=== PATIENT | male | born 1955 | race Caucasian/White ===

== ENCOUNTER 2018-04-16 19:51 | Emergency (ER) | payer OTHER, SELFPAY ==
[2018-04-16 19:52] VITALS: BP 129/65; PULSE 87; RESP 18; TEMP 38.9; O2SAT 99; BMI 24.7
[2018-04-16] MEDS: Acetaminophen 325 MG Tablet 650 MG PO (20:42)
--- NOTE | 2018-04-16 21:16 | ED.RN ---
INITIAL BLOOD CULTURE DRAWN WITH IV START.
[2018-04-16 21:54] LABS: Anion Gap 10 (5-15); BUN 16 mg/dL (7-18); BUN/Creat Ratio 12.8 RATIO (10-20); Calcium,Total 8.4 mg/dL (8.5-10.1); Chloride 98 mmol/L (98-107); Creatinine, Serum 1.25 mg/dL (0.70-1.30); EST Glomerular Filtration Rate 62 mL/min (>60); Est Glom Filt Rate - Afr Amer 75 mL/min (>60); Estimated Creatinine Clearance 61.27 ml/min; Glucose 115 mg/dL (74-106); Potassium 3.7 mmol/L (3.5-5.1); Sodium Level 133 mmol/L (136-145)
[2018-04-16] MEDS: 0.9% Normal Saline 1,000 ML 1000 ML IV (22:00)
[2018-04-16] MEDS: Ketorolac 30 MG/ML Syringe IV (22:00)
[2018-04-16 22:01] LABS: Absolute Lymphocyte Count 0.41 X10^3/ul (0.83-4.51); Hematocrit 44.3 % (40-54); Hemoglobin 15.3 g/dl (13.0-16.5); Lymphocyte # 0.41 X10^3/ul (4.0); Lymphocyte % 15.5 % (19-41); Mean Corp Hgb Conc 34.5 g/gl (32-36); Mean Corpuscular Hgb 29.5 pg (27.0-32.0); Mean Corpuscular Volume 85.4 fL (80-94); Mean Platelet Vol. 10.3 fl (6.2-12.0); Monocyte# 0.28 X10^3/uL; Monocyte% 10.6 % (0-10); Neutrophil # 1.96 X10^3/uL (2.7-7.7); Neutrophil % 73.9 % (47-70); Platelet Count 129 K/mm3 (150-450); RBC Distribution Width CV 12.6 % (11.6-14.6); RBC Distribution Width SD 39.5 fl (35.1-43.9); Red Blood Count 5.19 M/mm3 (4.6-6.2); White Blood Count 2.7 K/mm3 (4.4-11.0)
[2018-04-16 22:08] LABS: POSITIVE DIFFERENTIAL YES
[2018-04-16 22:09] LABS: Differential Indicated SCAN CRITERIA MET; POSITIVE COUNT NO; POSITIVE MORPHOLOGY NO
[2018-04-16 22:43] LABS: Platelet Estimate SLT DEC (ADEQ); Red Cell Morphology NORM C+C NORMAL (NORM C&C)
[2018-04-16] MEDS: 0.9% Normal Saline 1,000 ML 150 ML IV (22:48)
[2018-04-16 22:57] VITALS: BP 128/73; PULSE 70; RESP 15; TEMP 37.4; O2SAT 95
[2018-04-16 23:02] LABS: Bacteria 0 SEEN /hpf (None Seen); Red Blood Cells-Urine 0 SEEN /hpf (0-5); Squamous Epithelial Cells - UA 0 SEEN /hpf (0-5); White Blood Cells 0 SEEN /hpf (0-5)
[2018-04-16 23:20] LABS: Color, Urine Yellow (Yellow); Glucose, Dipstick Normal (Normal); Ketone-Dipstick 15 mg/dl (Negative); Leukocyte Esterase-Dipstick Negative /ul (Negative); Nitrite-Dipstick Negative (Negative); Occult Blood-Urine 10 /ul (Negative); Protein-Dipstick 30 mg/dl (Negative); Urine Bilirubin Dipstick Negative (Negative); Urine Clarity Clear (Clear); Urine Urobilinogen 1 mg/dl (Normal)
--- NOTE | 2018-04-16 23:35 | ED.VISSUMM ---
- ER Visit Summary Date of Service: 04/16/18 Chief Complaint: Fever, chills History of Present Illness: The patient is a 62 M with fever and body aches for the past 4 days. He had some mild URI symptoms with very minimal cough. He denies nausea, vomiting, or diarrhea. He denies rash. [facility] and was felt to have a viral URI. Patient states his fever has been hard to control today so he came in for evaluation. Physical Examination: Blood pressure is 129/65, temperature 102.1, heart rate 87, respiratory rate 18, pulse ox 99% on room air. Patient's lying in bed no acute distress. Head neck examination is grossly unremarkable. There is no meningismus. Heart is regular rate and rhythm. Lung sounds are clear with good air movement. Abdomen is soft nontender. Hypoactive bowel sounds are noted throughout. Skin examination was no rash or lesions. Test Results: Two-view chest x-ray shows no acute process. CBC reveals a white count of 2.7 with 74% neutrophils. Platelet count is 101 9000. Chemistry studies reveal a sodium of 133. Urinalysis shows 15 ketones but no sign of acute infection. Influenza swab is negative. Blood cultures were sent. Emergency Department Course and Treatment: Patient was given Tylenol by nursing protocol. He was given IV fluids and Toradol at the time of my exam. Repeat vital signs include blood pressure of 128/73, heart rate 70, temperature 99.4. Test results are discussed with patient and family at bedside. He is to continue Tylenol and ibuprofen. He will increase fluids. If his symptoms worsen in any way he is to come back for repeat evaluation. He was advised that preliminary results on blood cultures would be available within 24 hours and if positive he will be called to return. Treatment Plan: [] Disposition: Discharge Impression: Fever, uncertain etiology This note was generated with [employer] dictation software. It may contain incorrect words, spelling, and punctuation that were not noted in review of the chart prior to signing ED Disposition - Plan for ED Patient: Disposition: Home or Assisted Living Chief Complaint: Fever Instructions: ED Fever Unconf Cause Referrals: Guille Urbina MD [Primary Care Provider] - 3-5 Days
[2018-04-16 23:46] LABS: Mucous, Urine RARE /hpf (<or=2+)
[2018-04-17 00:13] VITALS: BP 128/78; PULSE 76; RESP 16; O2SAT 98
== END 2018-04-17 00:14 | disposition home or self-care (01) ==
PROVIDERS: Emergency Provider Emergency Medicine; PCP Family Medicine
DX: R50.9 Fever, unspecified (principal); R05 Cough; R51 Headache; Z85.46 Personal history of malignant neoplasm of prostate
CPT/HCPCS: 71046; 80048; 81001; 85025; 87040; 87804; 96361; 96374; 99285; J7030; A4216

== ENCOUNTER 2018-04-18 08:24 | Emergency (ER) | payer OTHER, SELFPAY ==
[2018-04-18 08:24] VITALS: BP 134/68; PULSE 83; RESP 18; TEMP 39.5; O2SAT 98; BMI 24.7
--- NOTE | 2018-04-18 09:04 | ED.VISSUMM ---
- ER Visit Summary Date of Service: 04/18/18 Chief Complaint: Patient presents with a fever History of Present Illness: The patient is a 62 M who presents with a fever that has been persistent over the past 4 days. Patient was seen here 2 days ago and had lab work and x-ray done which were normal. Patient has been taking Tylenol and ibuprofen every 3 hours with no improvement of the fever. Patient admits to subjective chills. Patient admits to some myalgias. Patient also admits to some nausea, vomiting, diarrhea. Patient admits to a cough but denies any sputum production. Patient denies any chest pain or shortness of breath. Patient admits to decreased appetite. Physical Examination: Vital signs are stable. Patient is febrile with a temperature of 103.1 here. Heart rate is normal however at 83. Oral mucosa is pink and moist. Neck is supple. Trachea is midline. Is no JVD or lymphadenopathy noted. Heart was regular rate and rhythm. Lungs are clear and equal bilateral. There is good respiratory effort noted. Bowel sounds are normal. There is no tenderness. Cranial nerves II through XII are intact. There are no focal motor or sensory deficits noted. The remaining physical exam is within normal limits. Test Results: PA and lateral chest x-ray was obtained. There is a questionable nodule in the left upper lobe. CBC, basic metabolic profile, urinalysis, and mono test were obtained. White blood cell count was slightly low at 2.2. Platelet count was slightly low at 129. These were similar to results obtained 2 days ago. The remaining labs are within normal limits. CTA of the chest was obtained. There is a consolidation of the posterior segment of the left upper lobe. Emergency Department Course and Treatment: Patient was given IV fluids, Toradol, and Tylenol. Patient's fever improved here. Patient was given a dose of Levaquin here. Patient was given a prescription for Levaquin. Patient was instructed to follow-up with his primary care physician in 5-7 days. Patient understood and was agreeable with the plan. All questions were answered. Disposition: Discharged home Impression: Community acquired pneumonia This note was generated with [employer] software. It may contain incorrect words, spelling, and punctuation that were not noted in review of the chart prior to signing ED Disposition - Plan for ED Patient: Disposition: Home or Assisted Living Chief Complaint: Fever Diagnosis: Community acquired pneumonia Instructions: ED Pneumonia Adult Prescriptions: Levofloxacin [Levaquin] 750 mg PO DAILY #7 tab Referrals: Guille Urbina MD [Primary Care Provider] -
[2018-04-18] MEDS: Acetaminophen 500 MG Tablet 1000 MG PO (09:15)
[2018-04-18] MEDS: Ketorolac 30 MG/ML Syringe IV (09:15)
[2018-04-18] MEDS: 0.9% Normal Saline 1,000 ML 1000 ML IV (09:15)
[2018-04-18 09:25] LABS: Absolute Lymphocyte Count 0.41 X10^3/ul (0.83-4.51); Absolute Neutrophil Count 1.6 X10^3/uL (2.0-7.7); Basophil# 0.02 X10^3/uL; Basophil% 0.9 % (0-1); Differential Indicated SCAN CRITERIA MET; Hematocrit 40.8 % (40-54); Hemoglobin 14.5 g/dl (13.0-16.5); Lymphocyte # 0.41 X10^3/ul (4.0); Lymphocyte % 18.3 % (19-41); Mean Corp Hgb Conc 35.5 g/gl (32-36); Mean Corpuscular Hgb 29.7 pg (27.0-32.0); Mean Corpuscular Volume 83.6 fL (80-94); Mean Platelet Vol. 10.4 fl (6.2-12.0); Monocyte# 0.16 X10^3/uL; Monocyte% 7.1 % (0-10); Neutrophil # 1.64 X10^3/uL (2.7-7.7); Neutrophil % 73.3 % (47-70); POSITIVE COUNT NO; POSITIVE DIFFERENTIAL YES; POSITIVE MORPHOLOGY YES; Platelet Count 129 K/mm3 (150-450); RBC Distribution Width CV 12.4 % (11.6-14.6); RBC Distribution Width SD 37.2 fl (35.1-43.9); Red Blood Count 4.88 M/mm3 (4.6-6.2); White Blood Count 2.2 K/mm3 (4.4-11.0)
[2018-04-18 09:32] LABS: Anion Gap 10 (5-15); BUN 16 mg/dL (7-18); BUN/Creat Ratio 14.4 RATIO (10-20); Chloride 102 mmol/L (98-107); Creatinine, Serum 1.11 mg/dL (0.70-1.30); EST Glomerular Filtration Rate 71 mL/min (>60); Est Glom Filt Rate - Afr Amer 86 mL/min (>60); Glucose 109 mg/dL (74-106); Potassium 3.9 mmol/L (3.5-5.1); Sodium Level 137 mmol/L (136-145)
[2018-04-18 09:47] LABS: Internal QC Validated? YES +Cl - CLEAR BKGD; Monotest Negative (Negative); Record Kit Lot#, Mono 13171517
[2018-04-18 10:01] VITALS: TEMP 37.6
[2018-04-18 11:42] LABS: Color, Urine Yellow (Yellow); Glucose, Dipstick Normal (Normal); Ketone-Dipstick 50 mg/dl (Negative); Leukocyte Esterase-Dipstick Negative /ul (Negative); Nitrite-Dipstick Negative (Negative); Occult Blood-Urine 10 /ul (Negative); Protein-Dipstick 30 mg/dl (Negative); Urine Bilirubin Dipstick Negative (Negative); Urine Clarity Sl. Cloudy (Clear); Urine Urobilinogen Normal (Normal)
[2018-04-18 11:50] LABS: Red Blood Cells-Urine 0-5 SEEN /hpf (0-5); Squamous Epithelial Cells - UA 0-5 SEEN /hpf (0-5); White Blood Cells 0-5 SEEN /hpf (0-5)
[2018-04-18 11:52] LABS: Bacteria RARE /hpf (None Seen); Mucous, Urine 2+ /hpf (<or=2+)
[2018-04-18 12:14] VITALS: TEMP 36.7
[2018-04-18] MEDS: levoFLOXacin 750 MG Tablet PO (14:06)
[2018-04-18 14:09] VITALS: BP 126/71; PULSE 60; RESP 16; RESP 18; O2SAT 97
== END 2018-04-18 14:11 | disposition home or self-care (01) ==
PROVIDERS: Emergency Provider Emergency Medicine; Family Provider Family Medicine; PCP Family Medicine
DX: J44.9 Chronic obstructive pulmonary disease, unspecified (principal); R19.7 Diarrhea, unspecified; Z85.46 Personal history of malignant neoplasm of prostate; Z90.79 Acquired absence of other genital organ(s)
CPT/HCPCS: 71046; 71275; 80048; 81001; 85025; 86308; 96361; 96374; 99284; J7030; Q9967; A4216

== ENCOUNTER → 2018-07-10 16:20 | Outpatient (CLI) | payer OTHER, SELFPAY ==
--- OUTSIDE RECORDS SUMMARY | 2018-09-04 22:37 | XMS RPT_ITS ---
:1955 Author Organization [facility] Care Team Providers Name Role Phone Dwain Moran Attending Unavailable Primay Care Physicia, No Referring Unavailable Primay Care Physicia, No Primary Care Unavailable Primay Care Physicia, No Primary Care Unavailable Clau Kirkpatrick Attending Unavailable Yomi Ortega Attending Unavailable GUILLE JANE Primary Care Unavailable Anastasia Paulson Attending Unavailable Anastasia Paulson Referring Unavailable GUILLE JANE Primary Care Unavailable PROBLEMS PROBLEMS No Problem Records FoundPROCEDURES PROCEDURES No Procedure Records FoundRESULTS RESULTS PSA,TOTAL- DIAGNOSTIC Collected: 07/10/2018 Status: F Source: [place] 4:25 PM [facility] REPOSITORY TYPE CODE TESTS RESULT OUT OF RANGE REFERENCE UNITS LAB L501.9940 0.0-4.0 ng/mL PSA, Normal DIAGNOSTIC 0.20 Result Comment: This test was performed using the TPSA assay method for the [employer] chemistry system. Values obtained with different assay methods cannot be used interchangably. When changing PSA assays in the course of monitoring a patient, additional sequential testing should be carried out to confirm baseline values. Performed By: #### L501.9940 #### [facility] [address] [place], [address] EMERGENCY DEPARTMENT Observed: 04/18/2018 Status: F Source: [place] SUMMARY 1:57 PM [facility] REPOSITORY [facility] Medical Records Department [address] [place] [address] Emergency Department Summary 04/18/18 0904 MR#: [id number] Acct: [id number] Name: PRINCE LAWRENCE Rep #: [id number] : 1955 62 From: Yomi Ortega DO PCP: Guille Jane MD Status: REG ER - ER Visit Summary Date of Service: 04/18/18 Chief Complaint: Patient presents with a fever History of Present Illness: The patient is a 62 M who presents with a fever that has been persistent over the past 4 days. Patient was seen here 2 days ago and had lab work and x-ray done which were normal. Patient has been taking Tylenol and ibuprofen every 3 hours with no improvement of the fever. Patient admits to subjective chills. Patient admits to some myalgias. Patient also admits to some nausea, vomiting, diarrhea. Patient admits to a cough but denies any sputum production. Patient denies any chest pain or shortness of breath. Patient admits to decreased appetite. Physical Examination: Vital signs are stable. Patient is febrile with a temperature of 103.1 here. Heart rate is normal however at 83. Oral mucosa is pink and moist. Neck is supple. Trachea is midline. Is no JVD or lymphadenopathy noted. Heart was regular rate and rhythm. Lungs are clear and equal bilateral. There is good respiratory effort noted. Bowel sounds are normal. There is no tenderness. Cranial nerves II through XII are intact. There are no focal motor or sensory deficits noted. The remaining physical exam is within normal limits. Test Results: PA and lateral chest x-ray was obtained. There is a questionable nodule in the left upper lobe. CBC, basic metabolic profile, urinalysis, and mono test were obtained. White blood cell count was slightly low at 2.2. Platelet count was slightly low at 129. These were similar to results obtained 2 days ago. The remaining labs are within normal limits. CTA of the chest was obtained. There is a consolidation of the posterior segment of the left upper lobe. Emergency Department Course and Treatment: Patient was given IV fluids, Toradol, and Tylenol. Patient's fever improved here. Patient was given a dose of Levaquin here. Patient was given a prescription for Levaquin. Patient was instructed to follow- up with his primary care physician in 5-7 days. Patient understood and was agreeable with the plan. All questions were answered. Disposition: Discharged home Impression: Community acquired pneumonia This note was generated with [employer] dictation software. It may contain incorrect words, spelling, and punctuation that were not noted in review of the chart prior to signing ED Disposition - Plan for ED Patient: Disposition: Home or Assisted Living Chief Complaint: Fever Diagnosis: Community acquired pneumonia Instructions: ED Pneumonia Adult Prescriptions: Levofloxacin [Levaquin] 750 mg PO DAILY #7 tab Referrals: Guille Jane MD [Primary Care Provider] - What to do if you have Problems For any increased pain, shortness of breath, bleeding, nausea or vomiting, chest pain, or any unexpected problems, contact your Primary Care Provider. Call [facility] ([phone]) or report to the closest Emergency Room. Call 911 if necessary. 04/18/18 9857 <Electronically signed by Yomi Ortega DO> Date Yomi Ortega DO Cosigner Signature (If Indicated): Date CC: Guille Jane MD URINALYSIS, COMPLETE Collected: 04/18/2018 Status: F Source: [place]BD[place]IZ 11:36 AM [facility] REPOSITORY Order Comment: Has pt arrived? Y How was Urine Obtained? BPM DEVELOPER TO SPECIFY TYPE CODE TESTS RESULT OUT OF RANGE REFERENCE UNITS LAB L400.3000 Yellow COLOR Normal Yellow LAB L400.3050 Clear Normal CLARITY Sl. Cloudy LAB L400.3200 Normal mg/dl Normal GLUCOSE, UR Normal LAB L400.3300 Negative mg/dL Normal BILIRUBIN URINE Negative LAB L400.3400 Negative mg/dl High 50 KETONE UR LAB L400.3465 1.002-1.030 Normal SP.GR. DIPSTX 1.010 LAB L400.3550 5.0 - 8.0 pH UR Normal 5.0 LAB L400.3600 Negative mg/dl High PROT 30 DIPSTX LAB L400.3700 Normal mg/dl Normal UROBILI Normal LAB L400.3750 Negative Normal NITRITE UR Negative LAB L400.3780 Negative /ul High 10 OCCULT BLOOD-UR LAB L400.3800 Negative /ul LEUK Normal ESTERASE Negative LAB L400.4050 0-5 /hpf WBC Normal 0-5 SEEN LAB L400.4100 0-5 /hpf Normal RBC-UA 0-5 SEEN LAB L400.4150 0-5 /hpf SQUAM Normal EPI 0-5 SEEN LAB L400.4300 None Seen /hpf Normal BACTERIA RARE LAB L400.4350 <or=2+ /hpf 2+ Normal MUCUS, URINE Performed By: #### L400.0001 #### [facility] [address] [place], [address] CTA CHEST W/WO Observed: 04/18/2018 Status: F Source: [place] CONTRAST 10:36 AM [facility] REPOSITORY [facility] Imaging Services [address] [place] [address] CTA Chest W/WO Contrast MR#: [id number] Acct: [id number] Name: LEXITianPRINCE A Rep #: [id number] : 1955 M 62 From: Salvador Bauer MD PCP: Guille Jane MD Status: REG ER Study: CTA Chest W/WO Contrast Date of Exam: 04/18/18 Exam# [id number] Ordering Dr: Yomi Ortega DO STUDY: CTA CHEST REASON FOR EXAM: Male, 62 years old. Shortness of breath. Fever. RADIATION DOSAGE (If Supplied By Facility): CTDIvol = ( 13.05 ) mGy, DLP = ( 458.00 ) mGycm TECHNIQUE: The examination was performed with the intravenous administration of 75 ml of Isovue 370 contrast material. Post-processing of the angiographic images was performed, with multiplanar reformation and 3D reconstruction. Individualized dose optimization techniques were used for this CT. COMPARISON: None. FINDINGS: Normal enhancement of the main pulmonary artery and right and left pulmonary arteries. Normal enhancement of the bilateral peripheral pulmonary arteries. There is no demonstrated pulmonary embolism. Normal thoracic aorta and visualized great vessels. There is no demonstrated aortic dissection. Normal heart and pericardium. There are visualized mediastinal lymph nodes, which are within normal size limits, and with normal morphology. Normal hilar regions. Normal visualized trachea and bronchi. The lungs are well expanded. Consolidation in the posterior aspect of the left upper lobe. This abuts the left major fissure. Radiographic follow-up is recommended until clearing. Mild degree of increased markings at both lung bases suggestive of a left basilar atelectasis. Normal pleura. Normal chest wall structures. Normal osseous structures. Small hiatal hernia. CT/CTA Chest W/WO Contrast IMPRESSION: Focal consolidation in posterior aspect of the left upper lobe as described. Radiographic follow-up is recommended until clearing. Electronically Signed: Salvador Bauer MD at 13:39 EDT Tel [phone], Service support , CC: Yomi Ortega DO; Guille Jane MD Channel Machine Operator: Signed CBC W/DIFF, AUTOMATED Collected: 04/18/2018 Status: F Source: [place] 9:13 AM [facility] REPOSITORY TYPE CODE TESTS RESULT OUT OF RANGE REFERENCE UNITS LAB L100.1000 4.4-11.0 K/mm3 Low WBC 2.2 LAB L100.1200 4.6-6.2 M/mm3 Normal RBC 4.88 LAB L100.1300 13.0-16.5 g/dl Normal HGB 14.5 LAB L100.1400 40-54 % Normal HCT 40.8 LAB L100.1500 80-94 fL Normal MCV 83.6 LAB L100.1600 27.0-32.0 pg Normal MCH 29.7 LAB L100.1700 32-36 g/gl Normal MCHC 35.5 LAB L100.1810 11.6-14.6 % Normal RDW CV 12.4 LAB L100.1820 35.1-43.9 fl Normal RDW SD 37.2 LAB L100.1900 150-450 K/mm3 Low PLT 129 LAB L100.2000 6.2-12.0 fl Normal MPV 10.4 LAB L100.2100 47-70 % High NEUT% 73.3 LAB L100.2200 19-41 % Low LY% 18.3 LAB L100.2300 0-10 % Normal MONO% 7.1 LAB L100.2400 0-5 % Normal EO% 0.0 LAB L100.2500 0-1 % Normal BASO% 0.9 LAB L100.2550 0.0-0.9 % Normal IM GRAN % 0.400 Result Comment: IG% - Immature Granulocytes (promyelocytes, myelocytes and metamyelocytes) > 1% indicates that a LEFT SHIFT is Present. LAB L100.2620 2.0-7.7 X10 3/uL Low Absolute Neut 1.6 LAB L100.2720 0.83-4.51 X10 3/ul Low Absolute Lymph 0.41 LAB L100.4500 Normal SMEAR COMMENT COMMENT Result Comment: SLIDE SCANNED - LYMPHOPENIA NOTED. Performed By: #### L100.0100 #### [facility] [address] [place], [place], [address] BASIC METABOLIC Collected: 04/18/2018 Status: F Source: [place] PROFILE (BMP) 9:13 AM [facility] REPOSITORY TYPE CODE TESTS RESULT OUT OF RANGE REFERENCE UNITS LAB L501.0100 74-106 mg/dL High GLU 109 Result Comment: Fasting Glucose result from 100 to 125 mg/dL suggests IMPAIRED HOMEOSTASIS per A.D.A. criteria. Please note revised GLUCOSE reference range effective 2017. LAB L501.1000 7-18 mg/dL Normal BUN 16 LAB L501.1100 0.70-1.30 mg/dL Normal CREAT,SERUM 1.11 Result Comment: The validity of the calculated GFR AND GFRAA in patients over 70 years has not been determined. Clinical correlation is essential. LAB L501.1110 >60 mL/min Normal EST GFR 71 Result Comment: Non- GFR Calc LAB L501.1115 >60 mL/min Normal EST GFR - AA 86 Result Comment: GFR Calc LAB L501.1255 ml/min Normal Estimated CRCL 69.00 LAB L501.1300 10-20 RATIO Normal BUN/CRE 14.4 LAB L501.2200 8.5-10 mg/dL Low .1 CA 8.0 LAB L501.5300 136-14 mmol/L Normal 5 NA 137 LAB L501.5600 3.5-5. mmol/L Normal 1 K 3.9 LAB L501.5900 98-107 mmol/L Normal CL 102 LAB L501.6100 21.0-3 mmol/L Normal 2.0 CO2 25.0 LAB L501.6200 5-15 Normal GAP 10 Performed By: #### L500.2500 #### [facility] [address] [place], [address] MONOTEST Collected: 04/18/2018 Status: F Source: [place] 9:13 AM [facility] REPOSITORY TYPE CODE TESTS RESULT OUT OF RANGE REFERENCE UNITS LAB L700.5700 Negative Normal MONO Negative Performed By: #### L700.5500 #### [facility] [address] [place], [address] CHEST PA AND LATERAL Observed: 04/18/2018 Status: F Source: [place] 8:58 AM [facility] REPOSITORY [facility] Imaging Services [address] [place] [address] Chest PA and Lateral MR#: [id number] Acct: [id number] Name: PRINCE LAWRENCE Rep #: [id number] : 1955 M 62 From: Salvador Bauer MD PCP: Guille Jane MD Status: REG ER Study: Chest PA and Lateral Date of Exam: 04/18/18 Exam# [id number] Ordering Dr: Yomi Ortega DO STUDY: X-RAY CHEST REASON FOR EXAM: Male, 62 years old. 7 day history of fever. TECHNIQUE: PA and lateral views of the chest. COMPARISON: Comparison is made with prior examination dated April 16, 2018. FINDINGS: The lungs are clear and expanded. Questionable 2.2 cm x 2 cm faint nodular density in the left upper lobe. Follow-up is recommended. Scattered calcified granulomas. There is no demonstrated pleural abnormality. Normal size heart. Normal mediastinum and jose ramon. Normal visualized pulmonary arteries. Normal visualized aortic arch and descending thoracic aorta. Normal visualized thoracic spine. Normal visualized ribs, clavicles, and shoulders. There is no demonstrated abnormality of the visualized soft tissue structures of the upper abdomen. RAD/Chest PA and Lateral IMPRESSION: Questionable subtle 2.2 cm x 1 2 cm nodule in the left upper lobe. Follow-up is recommended. Electronically Signed: Salvador Bauer MD at 9:42 EDT Tel [phone], Service support , CC: Yomi Ortega DO; Guille Jane MD Channel Machine Operator: Signed EMERGENCY DEPARTMENT Observed: 04/17/2018 Status: F Source: [place] SUMMARY 12:45 AM [facility] REPOSITORY [facility] Medical Records Department [address] [place] [address] Emergency Department Summary 04/16/18 2335 MR#: [id number] Acct: [id number] Name: PRINCE LAWRENCE Rep #: [id number] : 1955 62 From: Clau Kirkpatrick MD PCP: Guille Jane MD Status: DEP ER - ER Visit Summary Date of Service: 04/16/18 Chief Complaint: Fever, chills History of Present Illness: The patient is a 62 M with fever and body aches for the past 4 days. He had some mild URI symptoms with very minimal cough. He denies nausea, vomiting, or diarrhea. He denies rash. Patient [facility] yesterday and was felt to have a viral URI. Patient states his fever has been hard to control today so he came in for evaluation. Physical Examination: Blood pressure is 129/65, temperature 102.1, heart rate 87, respiratory rate 18, pulse ox 99% on room air. Patient's lying in bed no acute distress. Head neck examination is grossly unremarkable. There is no meningismus. Heart is regular rate and rhythm. Lung sounds are clear with good air movement. Abdomen is soft nontender. Hypoactive bowel sounds are noted throughout. Skin examination was no rash or lesions. Test Results: Two-view chest x-ray shows no acute process. CBC reveals a white count of 2.7 with 74% neutrophils. Platelet count is 101 9000. Chemistry studies reveal a sodium of 133. Urinalysis shows 15 ketones but no sign of acute infection. Influenza swab is negative. Blood cultures were sent. Emergency Department Course and Treatment: Patient was given Tylenol by nursing protocol. He was given IV fluids and Toradol at the time of my exam. Repeat vital signs include blood pressure of 128/73, heart rate 70, temperature 99.4. Test results are discussed with patient and family at bedside. He is to continue Tylenol and ibuprofen. He will increase fluids. If his symptoms worsen in any way he is to come back for repeat evaluation. He was advised that preliminary results on blood cultures would be available within 24 hours and if positive he will be called to return. Treatment Plan: [] Disposition: Discharge Impression: Fever, uncertain etiology This note was generated with [employer] dictation software. It may contain incorrect words, spelling, and punctuation that were not noted in review of the chart prior to signing ED Disposition - Plan for ED Patient: Disposition: Home or Assisted Living Chief Complaint: Fever Instructions: ED Fever Unconf Cause Referrals: Guille Jane MD [Primary Care Provider] - 3-5 Days What to do if you have Problems For any increased pain, shortness of breath, bleeding, nausea or vomiting, chest pain, or any unexpected problems, contact your Primary Care Provider. Call [facility] ([phone]) or report to the closest Emergency Room. Call 911 if necessary. 04/17/18 0045 <Electronically signed by Clau Kirkpatrick MD> Date Clau Kirkpatrick MD Cosigner Signature (If Indicated): Date CC: No Primary Care Physician; Guille Jane MD DISCHARGE INSTRUCTION Observed: 04/16/2018 Status: F Source: [place]IZ 11:36 PM [facility] REPOSITORY [facility] Medical Records Department [address] [place] [address] Discharge Instruction 04/16/182334 MR#: [id number] Acct: [id number] Name: PRINCE LAWRENCE Rep #: [id number] : 1955 62 From: Clau Kirkpatrick MD PCP: Guille Jane MD Status: REG ER ED Disposition - Plan for ED Patient: Disposition: Home or Assisted Living Chief Complaint: Fever Instructions: ED Fever Unconf Cause Referrals: Guille Jane MD [Primary Care Provider] - 3-5 Days What to do if you have Problems For any increased pain, shortness of breath, bleeding, nausea or vomiting, chest pain, or any unexpected problems, contact your Primary Care Provider. Call [facility] ([phone]) or report to the closest Emergency Room. Call 911 if necessary. 04/16/182335 <Electronically signed by Clau Kirkpatrick MD> Date Clau Kirkpatrick MD Cosigner Signature (If Indicated): Date CC: No Primary Care Physician; Guille Jane MD URINALYSIS, COMPLETE Collected: 04/16/2018 Status: F Source: [place] 10:50 PM [facility] REPOSITORY Order Comment: How was Urine Obtained? CLEAN CATCH TYPE CODE TESTS RESULT OUT OF RANGE REFERENCE UNITS LAB L400.3000 Yellow COLOR Normal Yellow LAB L400.3050 Clear Normal CLARITY Clear LAB L400.3200 Normal mg/dl Normal GLUCOSE, UR Normal LAB L400.3300 Negative mg/dL Normal BILIRUBIN URINE Negative LAB L400.3400 Negative mg/dl High 15 KETONE UR LAB L400.3465 1.002-1.030 Normal SP.GR. DIPSTX 1.020 LAB L400.3550 5.0 - 8.0 pH UR Normal 5.0 LAB L400.3600 Negative mg/dl High PROT 30 DIPSTX LAB L400.3700 Normal mg/dl High 1 UROBILI LAB L400.3750 Negative Normal NITRITE UR Negative LAB L400.3780 Negative /ul High 10 OCCULT BLOOD-UR LAB L400.3800 Negative /ul LEUK Normal ESTERASE Negative LAB L400.4050 0-5 /hpf WBC 0 Normal SEEN LAB L400.4100 0-5 /hpf 0 Normal RBC-UA SEEN LAB L400.4150 0-5 /hpf SQUAM 0 Normal EPI SEEN LAB L400.4300 None Seen /hpf 0 Normal BACTERIA SEEN LAB L400.4350 <or=2+ /hpf Normal MUCUS, URINE RARE Performed By: #### L400.0001 #### [facility] [address] [place], [address] URINALYSIS, COMPLETE Collected: 04/16/2018 Status: P Source: [place] 9:54 PM [facility] REPOSITORY Order Comment: How was Urine Obtained? CLEAN CATCH TYPE CODE TESTS RESULT OUT OF RANGE REFERENCE UNITS LAB L400.3000 Yellow COLOR Normal Yellow LAB L400.3050 Clear Normal CLARITY Clear LAB L400.3200 Normal mg/dl High GLUCOSE, UR 1000 LAB L400.3300 Negative mg/dL Normal BILIRUBIN URINE Negative LAB L400.3400 Negative mg/dl High 5 KETONE UR LAB L400.3465 1.002-1.030 Normal SP.GR. DIPSTX 1.020 LAB L400.3550 5.0 - 8.0 pH UR Normal 5.0 LAB L400.3600 Negative mg/dl High PROT DIPSTX 500 LAB L400.3700 Normal mg/dl Normal UROBILI Normal LAB L400.3750 Negative Normal NITRITE UR Negative LAB L400.3780 Negative /ul High 10 OCCULT BLOOD-UR LAB L400.3800 Negative /ul LEUK Normal ESTERASE Negative LAB L400.4050 0-5 /hpf WBC 0 Normal SEEN LAB L400.4100 0-5 /hpf 0 Normal RBC-UA SEEN LAB L400.4150 0-5 /hpf SQUAM 0 Normal EPI SEEN LAB L400.4300 None Seen /hpf 0 Normal BACTERIA SEEN LAB L400.4350 <or=2+ /hpf 0 Normal MUCUS, URINE SEEN Performed By: #### L400.0001 #### [facility] [address] [place], [address] Observed: 04/16/2018 Status: F Source: [place] CULTURE, BLOOD (WB) 9:50 PM [facility] REPOSITORY BC No growth in 5 days. Performed By: #### M200.1000 #### [facility] [address] [place], [place], [address] CHEST PA AND LATERAL Observed: 04/16/2018 Status: F Source: [place] 9:31 PM [facility] REPOSITORY [facility] Imaging Services [address] [place] [address] Chest PA and Lateral MR#: [id number] Acct: [id number] Name: PRINCE LAWRENCE Rep #: [id number] : 1955 62 From: Lou Klein MD PCP: Guille Jane MD Status: REG ER Study: Chest PA and Lateral Date of Exam: 04/16/18 Exam# [id number] Ordering Dr: Clau Kirkpatrick MD STUDY: X-RAY CHEST REASON FOR EXAM: Male, 62 years old. Fever. TECHNIQUE: PA and lateral views of the chest. COMPARISON: None. FINDINGS: The lungs are clear and expanded. There is no demonstrated pleural abnormality. Normal size heart. Normal mediastinum and jose ramon. Normal visualized pulmonary arteries. Normal visualized aortic arch and descending thoracic aorta. Normal visualized thoracic spine. Normal visualized ribs, clavicles, and shoulders. There is no demonstrated abnormality of the visualized soft tissue structures of the upper abdomen. RAD/Chest PA and Lateral IMPRESSION: No acute cardiopulmonary process. Electronically Signed: Lou Klein MD at 22:04 EDT Tel , Service support , CC: Clau Kirkpatrick MD; Guille Jane MD Channel Machine Operator: Signed Observed: 04/16/2018 Status: F Source: [place] INFLUENZA A+B (RAPID 9:20 PM [facility]) REPOSITORY FLU A/B Rapid Negative test results should be confirmed by culture. Order Rapid Viral Culture for Influenzae A+B (240066) if clinically indicated. Influenza Ag, Direct Presumptive NEGATIVE for Influenza A/B Antigen (See Note) Performed By: #### M101.0101 #### [facility] [address] [place], [address] BASIC METABOLIC Collected: 04/16/2018 Status: F Source: [place] PROFILE (BMP) 8:50 PM [facility] REPOSITORY TYPE CODE TESTS RESULT OUT OF RANGE REFERENCE UNITS LAB L501.0100 74-106 mg/dL High GLU 115 Result Comment: Fasting Glucose result from 100 to 125 mg/dL suggests IMPAIRED HOMEOSTASIS per A.D.A. criteria. Please note revised GLUCOSE reference range effective 2017. LAB L501.1000 7-18 mg/dL Normal BUN 16 LAB L501.1100 0.70-1.30 mg/dL Normal CREAT,SERUM 1.25 Result Comment: The validity of the calculated GFR AND GFRAA in patients over 70 years has not been determined. Clinical correlation is essential. LAB L501.1110 >60 mL/min Normal EST GFR 62 Result Comment: Non- GFR Calc LAB L501.1115 >60 mL/min Normal EST GFR - AA 75 Result Comment: GFR Calc LAB L501.1255 ml/min Normal Estimated CRCL 61.27 LAB L501.1300 10-20 RATIO Normal BUN/CRE 12.8 LAB L501.2200 8.5-10 mg/dL Low .1 CA 8.4 LAB L501.5300 136-14 mmol/L Low 5 NA 133 LAB L501.5600 3.5-5. mmol/L Normal 1 K 3.7 LAB L501.5900 98-107 mmol/L Normal CL 98 LAB L501.6100 21.0-3 mmol/L Normal 2.0 CO2 25.0 LAB L501.6200 5-15 Normal GAP 10 Performed By: #### L500.2500 #### [facility] [place], [address] CBC W/DIFF, AUTOMATED Collected: 04/16/2018 Status: F Source: [place] 8:50 PM [facility] REPOSITORY TYPE CODE TESTS RESULT OUT OF RANGE REFERENCE UNITS LAB L100.1000 4.4-11.0 K/mm3 Low WBC 2.7 LAB L100.1200 4.6-6.2 M/mm3 Normal RBC 5.19 LAB L100.1300 13.0-16.5 g/dl Normal HGB 15.3 LAB L100.1400 40-54 % Normal HCT 44.3 LAB L100.1500 80-94 fL Normal MCV 85.4 LAB L100.1600 27.0-32.0 pg Normal MCH 29.5 LAB L100.1700 32-36 g/gl Normal MCHC 34.5 LAB L100.1810 11.6-14.6 % Normal RDW CV 12.6 LAB L100.1820 35.1-43.9 fl Normal RDW SD 39.5 LAB L100.1900 150-450 K/mm3 Low PLT 129 LAB L100.2000 6.2-12.0 fl Normal MPV 10.3 LAB L100.2100 47-70 % High NEUT% 73.9 LAB L100.2200 19-41 % Low LY% 15.5 LAB L100.2300 0-10 % High MONO% 10.6 LAB L100.2400 0-5 % Normal EO% 0.0 LAB L100.2500 0-1 % Normal BASO% 0.0 LAB L100.2550 0.0-0.9 % Normal IM GRAN % 0.000 Result Comment: IG% - Immature Granulocytes (promyelocytes, myelocytes and metamyelocytes) > 1% indicates that a LEFT SHIFT is Present. LAB L100.2620 2.0-7.7 X10 3/uL Normal Absolute Neut 2.0 LAB L100.2720 0.83-4.51 X10 3/ul Low Absolute Lymph 0.41 LAB L100.4500 Normal SMEAR COMMENT SEE COMMENT Result Comment: LYMPHOPENIA NOTED LAB L100.5500 ADEQ Normal PLT EST SLT DEC LAB L100.7000 NORM C AND NORMAL Normal C RED CELL NORM MORPH C+C Performed By: #### L100.0100 #### [facility] [address] [place], [place], [address] Observed: 04/16/2018 Status: F Source: [place] CULTURE, BLOOD (WB) 8:50 PM [facility] REPOSITORY BC No growth in 5 days. Performed By: #### M200.1000 #### [facility] [address] [place], [place], [address] URGENT CARE VISIT Observed: 04/15/2018 Status: F Source: [place] REPORT 8:04 AM [facility] [place] [facility] [address] [place] [address] [address] [place], [place] [address] OFFICE VISIT Date of Service: 04/15/18 MR#: [id number] Acct: [id number] Name: PRINCE LAWRENCE Rep #: [id number] : 1955 Provider: Dwain COFFMAN Age/Sex: 62/M Location: [facility] Status: Signed Intake Vital Signs04/15/18 Height 5 ft 8 in 04/15/18 Weight: 168 lb 04/15/18 Body Mass Index (BMI) 25.5 04/15/18 Blood Pressure 126/78 Intake Visit Reasons: FEVER, HEADACHE Manager Strategic Required: No Accompanied by: self Is patient in pain?: No Allergies No Known Allergies Allergy (Unverified 04/15/18 06:53) Medications sildenafil (antihypertensive) 20 mg tablet PO 10 Days #50 04/15/18 [History Confirmed 04/15/18] PFS Medical History History of prostate cancer (Acute) Family History Father Lung cancer Mother Colon cancer Social History Smoking Status: Never smoker alcohol intake: never HPI HPI Details: PRINCE LAWRENCE, is a 62 M who presents to the office today for complaint of 2 days of headache, tiredness and feeling of fever/chills. Patient states he has been sleeping more during this time due to low energy. Patient states feeling feverish however did not actually take his temperature. he does report taking Tylenol for his headache which is helped. No nausea, vomiting, diarrhea. No shortness of breath or difficulty breathing. No other associated symptoms or alleviating/aggravating factors. ROS Const Constitutional: Positive for fever(s), body ache, chills and fatigue ENT ENT: No ear pain, nasal congestion, sore throat or nasal discharge Resp Respiratory: No shortness of breath, hemoptysis or pain with cough Cardio Cardiology: No chest pain at rest or shortness of breath Musc Musculoskeletal: No abnormal walking Neuro Neurology: No abnormal walking or behavioral changes Psych Psychiatric: No behavioral changes, No mood swings Endo Endocrine: Positive for fatigue Exam Const General: cooperative, no acute distress HENMT Head: normocephalic, atraumatic Ears: hearing grossly normal bilaterally, TM's normal bilaterally, EAC's normal Nose: external nose normal Mouth: oral mucosae normal Throat: posterior oropharynx abnormal erythema; Negative for no exudates Resp Effort AND Inspection: normal respiratory effort Auscultation: Bilateral: Clear to Auscultation Cardio Palpation: normal PMI Rate: regular rate Rhythm: regular rhythm Heart Sounds: S1 normal, S2 normal Neuro General: alert, CN's II-XI intact bilaterally Psych Appearance: grossly normal Mental Status: mental status grossly normal Mood: congruent mood Assessment AND Plan Problems 1. URI, acute J06.9 Status Acute Plan Encouraged to get plenty of rest, drink lots of clear liquids, and use Tylenol or Ibuprofen (unless contraindicated) for fever and comfort. Patient also educated on other symptomatic management techniques. To be seen in 7-10 days if no improvement; sooner if worsening of symptoms. Patient advised of potential red flags and when appropriate report to the ED. Patient verbalized understanding of all the above. Coding Level of Care Code Off vis,new,level 3 Diagnoses URI, acute J06.9 04/15/18 0804 <Electronically signed by Dwain COFFMAN> Date Dwain COFFMAN Cosigner Signature: Date (if applicable) CC: ALLERGIES ALLERGIES DATE TYPE / CODE NAME / CODE REACTION SEVERITY SOURCE 04/18/2018 Drug No Known Unknown [facility] Allergy/4160 Allergies/F00 Hospital [address]326(SNOMED [id number](RXNOR Repository CT) M) ENCOUNTERS ENCOUNTERS ADMIT/DISCHARGE ACCOUNT ADMITTING ENCOUNTER LOCATION SOURCE NUMBER CLASS 07/10/2018 [id number] Ambulatory [facility] [place] [facility] ing:LAB Repository 04/18/2018/ [id number] Emergency [place] Abdul[facility]iz 8 4 [facility] ing:ED Repository 04/16/2018/ [id number] Emergency Abdulaziz [facility] 8 3 [facility] ing:ED Repository 04/15/2018/ [id number] Ambulatory BMSBuilding:B [place] 8 5 [facility] Repository PAYERS PAYERS ENCOUNTER GUARANTOR PAYER SUBSCRIBER SOURCE 07/10/2018 PRINCE A [id number] Primary PRINCE A Abdulaziz [place] Insurance:MEDICAL STREBDOB: [facility] [id number] [address]Ydf: (330) Number: Repository [phone] () [id number] Date:[id number] [id number]: 07/10/2018 Secondary NOT GIVENUNK Abdulaziz Insurance:SELF PAY [facility] Number: Effective Repository Date:2018-07-10 04/18/2018 PRINCE A [id number] Primary PRINCE A Abdulaziz [place] Insurance:MEDICAL STREBDOB: [facility] [id number] [address]Jgj: 330) Number: Repository [phone] () [id number] Date:[id number] [id number]: 04/18/2018 Secondary NOT GIVENUNK [place] Insurance:SELF PAY [facility] Number: Effective Repository Date:2018-04-18 04/16/2018 PRINCE A [id number] Primary PRINCE A [place] Insurance:MEDICAL STREBDOB: [facility] [id number] [address] (330) Number: Repository [phone] () [id number] Date:[id number] [address] [address]DG: 04/16/2018 Secondary NOT GIVENUNK Abdulaziz Insurance:SELF PAY [facility] Number: Effective Repository Date:2018-04-16 04/15/2018 PRINCE [place] Primary PRINCE STREBDOB: Abdulaziz [place] Insurance:MEDICAL [id number] [facility] [address]Rvo: (330) Number: Repository [phone] () [id number] Date:[id number] [address] [address]RY: 04/15/2018 Secondary NOT GIVENUNK Abdulaziz Insurance:SELF PAY [facility] Number: Effective Repository Date:2018-04-15
== END ==
PROVIDERS: Family Provider Family Medicine; PCP Family Medicine; Referring Provider Nurse Practitioner Adult Health; Visit Provider Nurse Practitioner Adult Health
DX: Z85.46 Personal history of malignant neoplasm of prostate (principal)
CPT/HCPCS: 36415; 84153

== ENCOUNTER → 2019-07-16 16:39 | Outpatient (CLI) | payer OTHER, SELFPAY ==
[2019-07-16 18:09] LABS: PSA,Total- Diagnostic 0.21 ng/mL (0.0-4.0)
== END ==
PROVIDERS: Family Provider Family Medicine; PCP Family Medicine
DX: C61 Malignant neoplasm of prostate (principal)
CPT/HCPCS: 36415; 84153

== ENCOUNTER → 2020-08-25 16:29 | Outpatient (CLI) | payer MEDICARE, OTHER, SELFPAY ==
[2020-08-25 17:42] LABS: PSA,Total- Diagnostic 0.23 ng/mL (0.0-4.0)
== END ==
PROVIDERS: PCP Family Medicine; Visit Provider Nurse Practitioner Adult Health
DX: Z85.46 Personal history of malignant neoplasm of prostate (principal)
CPT/HCPCS: 36415; 84153

== ENCOUNTER 2021-10-03 16:26 | Outpatient (CLI) | payer MEDICARE, OTHER, SELFPAY ==
[2021-10-03 17:35] LABS: PSA,Total- Diagnostic 0.29 ng/mL (0.0-4.0)
== END 2021-10-03 23:59 | disposition home or self-care (01) ==
LOC: LAB 16:30
PROVIDERS: PCP Family Medicine; Referring Provider Registered Nurse; Visit Provider Registered Nurse
DX: C61 Malignant neoplasm of prostate (principal)
CPT/HCPCS: 36415; 84153

== ENCOUNTER → 2022-10-08 | Outpatient (CLI) | payer MEDICARE, OTHER, SELFPAY ==
[2022-10-08 17:18] LABS: PSA,Total- Diagnostic 0.31 ng/mL (0.0-4.0)
== END | disposition home or self-care (01) ==
LOC: LABSPEC 16:39 → LAB 10-09 06:29
PROVIDERS: PCP Family Medicine; Visit Provider Registered Nurse
DX: C61 Malignant neoplasm of prostate (principal)
CPT/HCPCS: 36415; 84153

== ENCOUNTER → 2023-04-01 | Outpatient (CLI) | payer MEDICARE, OTHER, SELFPAY ==
[2023-04-01 17:10] LABS: PSA,Total- Diagnostic 0.31 ng/mL (0.0-4.0)
== END | disposition home or self-care (01) ==
LOC: LAB 15:49
PROVIDERS: PCP Family Medicine; Referring Provider Registered Nurse; Visit Provider Registered Nurse
DX: C61 Malignant neoplasm of prostate (principal)
CPT/HCPCS: 36415; 84153

== ENCOUNTER → 2023-12-30 | Outpatient (CLI) | payer MEDICARE, OTHER, SELFPAY | END | disposition home or self-care (01) | LOC: LAB 14:27 | PROVIDERS: PCP Family Medicine; Referring Provider Nurse Practitioner; Visit Provider Nurse Practitioner | DX: R97.21 Rising PSA following treatment for malignant neoplasm of prostate (principal) | CPT/HCPCS: 36415; 84153 ==

== ENCOUNTER → 2025-01-11 | Outpatient (CLI) | payer MEDICARE, OTHER, SELFPAY ==
[2025-01-11 16:18] LABS: PSA,Total- Diagnostic 0.38 ng/mL (0.00-4.00)
== END | disposition home or self-care (01) ==
LOC: LAB 15:15
PROVIDERS: PCP Family Medicine; Referring Provider Urology; Visit Provider Urology
DX: R97.21 Rising PSA following treatment for malignant neoplasm of prostate (principal)
CPT/HCPCS: 36415; 84153